=== PATIENT | female | born 1970 | race Caucasian/White ===

== ENCOUNTER 2017-01-12 14:11 | Emergency (ER) ==
[2017-01-12 14:34] VITALS: BP 129/85; TEMP 98; BMI 35.8
[2017-01-12] MEDS ORDERED: SODIUM CHLORIDE 1,000 ML IV STA (15:07)
[2017-01-12] MEDS ORDERED: PROTONIX IV IVP STA (15:09)
[2017-01-12 15:30] LABS: BASOPHILS # (AUTO) 0.1 K/uL (0-0.2); BASOPHILS % (AUTO) 0.4 % (0.0-3.0); EOSINOPHILS # (AUTO) 0.2 K/ul (0.0-0.7); EOSINOPHILS % (AUTO) 1.7 % (0.0-7.0); HEMATOCRIT 44.2 % (37.0-47.0); HEMOGLOBIN 15.1 g/dl (12.0-16.0); IMMATURE GRANULOCYTE % (AUTO) 0.3 % (0.0-5.0); LYMPHOCYTES # (AUTO) 3.7 K/uL (0.60-3.4); LYMPHOCYTES % (AUTO) 32.1 (10.0-50.0); MEAN CORPUSCULAR HEMOGLOBIN 30.4 pg (27.0-31.0); MEAN CORPUSCULAR HGB CONC 34.2 (31.8-35.4); MEAN CORPUSCULAR VOLUME 89.1 fl (81.0-99.0); MONOCYTES # (AUTO) 0.6 K/uL (0.4-2.0); NEUTROPHILS # (AUTO) 6.9 K/ul (2.0-6.9); NEUTROPHILS % (AUTO) 60.5; PLATELET COUNT 330 10^3/uL (140-440); RED BLOOD COUNT 4.96 10^6/ul (4.20-5.40); WHITE BLOOD COUNT 11.43 K/ul (4.6-10.2)
[2017-01-12] MEDS ORDERED: DEMEROL 50 MG/ML SYRINGE IVP STA (15:49)
[2017-01-12] MEDS ORDERED: ZOFRAN 4 MG/2 ML IVP STA (15:49)
--- NOTE | 2017-01-12 15:51 | ED.PDOC ---
General ED Provider: Dr. BENEDICTO CHARLES Chief Complaint: Abdominal Pain Stated Complaint: Patient complains of a 2 day history of mid epigastric to right upper quadrant pain. Pain is worse today and worse with food Rates it at 7 /10 Time Seen by Physician: 15:49 Mode of Arrival: Walk-In Information Source: Patient Primary Care Provider: ANN MARIE BAUTISTA Nursing and Triage Documentation Reviewed and Agree: Yes GI Complaint Exam - Abdominal Pain Complaint/Exam Onset: Sudden Aggravating: Reports: Food, Eating Alleviating: Reports: Position Associated Signs and Symptoms: Reports: Nausea AAA Risk Factors: Reports: None Cardiac Risk Factors: Reports: None Ectopic Risk Factors: Reports: None Ovarian Torsion Risk Factors: Reports: Tubal ligation, Hysterectomy Surgical Obstruction Risk Factors: Reports: None Related Surgical History: Denies: Cholecystectomy, Appendectomy Patient Rh Status: Unknown Abdominal Findings: Absent: Rebound tenderness Review of Systems - Review Of Systems Constitutional: Reports: No symptoms Eyes: Reports: No symptoms Ears, Nose, Mouth, Throat: Reports: No symptoms Respiratory: Reports: No symptoms Cardiac: Reports: No symptoms GI: Reports: Abdominal pain, Nausea, Poor appetite : Reports: No symptoms Musculoskeletal: Reports: No symptoms Skin: Reports: No symptoms Neurological: Reports: No symptoms Endocrine: Reports: No symptoms Hematologic/Lymphatic: Reports: No symptoms All Other Systems: Reviewed and Negative Past Medical History - Past Medical History Previously Healthy: Yes Endocrine: Reports: DM 2 Cardiovascular: Reports: Hypertension Respiratory: Reports: None Hematological: Reports: None Gastrointestinal: Reports: None Genitourinary: Reports: None Neuro/Psych: Reports: None Musculoskeletal: Reports: None Cancer: Reports: None Last Menstrual Period: none - Surgical History General Surgical History: Reports: Hysterectomy, Unknown - Family History Family History: Reports: Unknown - Social History Smoking Status: Never smoker Hx Substance Use: No Alcohol Screening: None Physical Exam - Physical Exam Appearance: Ill-appearing, Obese Ill-appearing: Moderate Pain Distress: Severe Eyes: GABRIELA, EOMI, Conjunctiva clear ENT: Nose normal, Oropharynx normal Neck: Supple Respiratory: Airway patent, Breath sounds clear, Breath sounds equal, Respirations nonlabored Cardiovascular: RRR, Pulses normal, No rub, No murmur GI/: Soft, No masses, Bowel sounds normal, No Organomegaly, Tender Musculoskeletal: Normal strength, ROM intact, No edema, No calf tenderness Skin: Warm, Dry, Normal color Neurological: Sensation intact, Motor intact, Reflexes intact, Cranial nerves intact, Alert, Oriented Psychiatric: Affect appropriate, Anxious Critical Care Note - Critical Care Note Total Time (mins): 0 Course - Course Hematology/Chemistry: 01/12/17 15:15 01/12/17 15:15 Orders, Labs, Meds: Lab Review 01/12/17 01/12/17 15:15 15:35 WBC 11.43 H RBC 4.96 Hgb 15.1 Hct 44.2 MCV 89.1 MCH 30.4 MCHC 34.2 RDW Coeff of Katalina 13.8 Plt Count 330 Immature Gran % (Auto) 0.3 Neut % (Auto) 60.5 Lymph % (Auto) 32.1 [place] % (Auto) 5.0 Eos % (Auto) 1.7 Baso % (Auto) 0.4 Immature Gran # (Auto) 0.0 Neut # 6.9 Lymph # 3.7 H [place] # 0.6 Eos # 0.2 Baso # 0.1 Sodium 144 Potassium 3.6 Chloride 111 H Carbon Dioxide 22 Anion Gap 14.6 BUN 5 L Creatinine 0.86 Estimated GFR (MDRD) 71.00 BUN/Creatinine Ratio 5.81 Glucose 85 Calcium 9.5 Total Bilirubin 0.57 AST 24 ALT 35 Alkaline Phosphatase 120 H Total Creatine Kinase 178 CK-MB (CK-2) 0.9 CK-MB (CK-2) % 0.52036 Troponin I < 0.0100 Total Protein 7.7 Albumin 4.1 Globulin 3.6 Albumin/Globulin Ratio 1.14 Amylase 31 Lipase 40 Urine Color Yellow Urine Clarity Cloudy Urine pH 6.0 Ur Specific [place] 1.015 Urine Protein Trace Urine Glucose (UA) Negative Urine Ketones Trace Urine Blood Trace-intact Urine Nitrite Negative Urine Bilirubin 1+ Urine Urobilinogen 0.2 Ur Leukocyte Esterase Negative Urine Microscopic RBC 2-5 Urine Microscopic WBC 0-2 Ur Squamous Epith Cells 20-30 Urine Bacteria 2+ Urine Mucus 2+ Orders Category Date Time Status EKG-(ED ONLY) Stat CARDIO 01/12/17 15:07 Completed 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 APPLIED .ONCE EMERGENCY 01/12/17 15:07 Active ED IV/MEDIPORT/POWERPORT .ONCE EMERGENCY 01/12/17 15:07 Active AMYLASE Stat LAB 01/12/17 15:15 Completed CBC W/ AUTO DIFF Stat LAB 01/12/17 15:15 Completed COMPREHENSIVE METABOLIC PANEL Stat LAB 01/12/17 15:15 Completed CREATINE KINASE Stat LAB 01/12/17 15:15 Completed LIPASE Stat LAB 01/12/17 15:15 Completed TROPONIN I Stat LAB 01/12/17 15:15 Completed URINALYSIS C & S IF INDICATED Stat LAB 01/12/17 15:35 Completed URINE CULTURE Stat LAB 01/12/17 15:35 Received 0.9 % Sodium Chloride [Saline Flush] MEDS 01/12/17 15:07 Ordered 1 syr IVF PRN PRN Meperidine HCl/Pf [Demerol 50 mg/ml Syringe] MEDS 01/12/17 15:49 Discontinued 50 mg IVP ONCE STA Ondansetron HCl/Pf [Zofran 4 mg/2 ml] MEDS 01/12/17 15:49 Discontinued 4 mg IVP ONCE STA Pantoprazole Sodium [Protonix IV] MEDS 01/12/17 15:09 Discontinued 40 mg IVP ONCE STA Sodium Chloride 0.9% [Sodium Chloride] 1,000 ml MEDS 01/12/17 15:07 Discontinued IV 1,000 mls/hr CHEST, 1V AP ONLY Stat RADS 01/12/17 15:[address] ABD/PEL WO RENAL STONE PROT Stat RADS 01/12/17 15:49 Completed Medications Generic Name Dose Route Start Last Admin Trade Name Freq PRN Reason Stop Dose Admin Sodium Chloride 1 syr 01/12/17 15:07 Saline Flush IVF PRN PRN To flush IV Discontinued Medications Generic Name Dose Route Start Last Admin Trade Name Freq PRN Reason Stop Dose Admin Sodium Chloride 1,000 mls @ 1,000 mls/hr 01/12/17 15:07 01/12/17 15:51 Sodium Chloride IV 01/12/17 16:06 1,000 mls/hr .Q1H STA Administration Meperidine HCl 50 mg 01/12/17 15:49 01/12/17 16:02 Demerol 50 Mg/Ml Syringe IVP 01/12/17 15:50 50 mg ONCE STA Administration Ondansetron HCl 4 mg 01/12/17 15:49 01/12/17 15:52 Zofran 4 Mg/2 Ml IVP 01/12/17 15:50 4 mg ONCE STA Administration Pantoprazole Sodium 40 mg 01/12/17 15:09 01/12/17 15:51 Protonix Iv IVP 01/12/17 15:10 40 mg ONCE STA Administration Vital Signs: Temp Pulse Resp BP Pulse Ox 01/12/17 14:11 98.0 F 75 20 129/85 97 Departure - Departure Time of Disposition: 16:40 Disposition: HOME SELF-CARE Discharge Problem: Abdominal pain UTI (urinary tract infection) Qualifiers: Urinary tract infection type: acute cystitis Hematuria presence: without hematuria Qualifier Code: (N30.00) Acute cystitis without hematuria Instructions: Acute Abdominal Pain (ED), Urinary Tract Infection in Women (ED) Condition: Stable Pt referred to PMD for follow-up: Yes Additional Instructions: Push fluids take medications as prescribed Follow up with PCP in 3 days Prescriptions: Dicyclomine HCl [Bentyl] 10 mg PO TID PRN #15 capsule PRN Reason: Abdominal pain Nitrofurantoin Macrocrystal [Nitrofurantoin] 100 mg PO BID #10 capsule Pantoprazole Sodium [Protonix] 40 mg PO DAILY #30 tablet. Tramadol HCl [Ultram] 50 mg PO Q6H PRN #20 tablet PRN Reason: Severe Pain Allergies/Adverse Reactions: Allergies aspirin Adverse Reaction (Verified 01/12/17 14:34) Nausea ibuprofen Adverse Reaction (Verified 01/12/17 14:34) Nausea phenazopyridine HCl [From Pyridium] Adverse Reaction (Verified 01/12/17 14:34) Hives Home Medications: Ambulatory Orders Cholecalciferol (Vitamin D3) [Vitamin D] 50,000 unit PO WEEKLY 10/26/14 Clonazepam [Klonopin] 0.5 mg PO QID 10/26/14 Cyclobenzaprine HCl [Flexeril] 10 mg PO BID 10/26/14 Lisinopril 2.5 mg PO DAILY 12/03/14 Ranitidine HCl 300 mg PO BID 12/03/14 Nortriptyline HCl 10 mg PO DAILY 07/22/15 Prazosin HCl 1 mg PO BEDTIME #30 05/10/16 Risperdal 1 mg PO BEDTIME #30 10/25/16 Cyanocobalamin (Vitamin B-12) [Vitamin B-12] 1,000 mcg IM MONTHLY 01/12/17 Dicyclomine HCl [Bentyl] 10 mg PO TID PRN #15 capsule 01/12/17 Escitalopram Oxalate [Lexapro] 20 mg PO DAILY 01/12/17 Nitrofurantoin Macrocrystal [Nitrofurantoin] 100 mg PO BID #10 capsule 01/12/17 Pantoprazole Sodium [Protonix] 40 mg PO DAILY #30 tablet. 01/12/17 Tramadol HCl [Ultram] 50 mg PO Q6H PRN #20 tablet 01/12/17 Disposition Discussed With: Patient, Family
[2017-01-12 15:58] LABS: ALANINE AMINOTRANSFERASE 35 U/L (12-78); ALBUMIN 4.1 g/dL (3.4-5.0); ALBUMIN/GLOBULIN RATIO 1.14; ALKALINE PHOSPHATASE 120 U/L (42-98); AMYLASE 31 U/L (25-115); ANION GAP 14.6; ASPARTATE AMINO TRANSFERASE 24 U/L (15-37); BILIRUBIN,TOTAL 0.57 mg/dL (0.00-1.20); BLOOD UREA NITROGEN 5 mg/dL (7-18); BUN/CREATININE RATIO 5.81; CALCIUM 9.5 mg/dL (8.2-10.2); CARBON DIOXIDE 22 mmol/L (21-32); CHLORIDE 111 mmol/L (98-107); CREATINE KINASE 178 U/L; CREATININE 0.86 mg/dL (0.60-1.30); GLUCOSE 85 mg/dL (70-110); LIPASE 40 U/L (8-78); POTASSIUM 3.6 mmol/L (3.5-5.10); SODIUM 144 mmol/L (136-145); TOTAL PROTEIN 7.7 g/dL (6.4-8.2)
[2017-01-12 16:00] LABS: CREATINE KINASE MB 0.9 ng/ml (0.0-3.6)
--- NOTE | 2017-01-12 16:25 | CT ---
EXAM: CT of the abdomen pelvis without contrast History: Right upper quadrant abdominal pain and tenderness. Comparison: Abdominal ultrasound 01/10/2016, CT abdomen pelvis 03/12/2015 Technique: Multiplanar CT images through the abdomen pelvis were obtained without the administratio n of IV contrast Findings: Lung bases are free of consolidation. No acute osseous abnormalities. No discrete gallstones identified by CT. No focal liver or splenic lesions. No peripancreatic infl ammation. Adrenal glands are unremarkable. No renal stones and no hydronephrosis. No ureteral gustavo culi. Bladder is not well distended. The appendix is normal. No bowel obstruction. No free air. No ascites. Tiny focus of air is seen within the bladder. No perirectal inflammation. Uterus is not seen. Impression: A tiny focus of air seen within the bladder is nonspecific and could be related to rece nt Delgado catheter placement or gas-forming organism. Correlate with urinalysis. The examination is otherwise unremarkable.
[2017-01-12 17:13] LABS: BILIRUBIN,URINE 1+ (NEGATIVE); KETONES,URINE Trace (NEGATIVE); LEUKOCYTE ESTERASE ,URINE Negative (NEGATIVE); NITRITE,URINE Negative (NEGATIVE); PROTEIN,URINE Trace (NEGATIVE); URINE, BLOOD Trace-intact (NEGATIVE)
[2017-01-12 17:14] LABS: ADD URINE MICROSCOPIC YES
[2017-01-12 17:15] LABS: BACTERIA,URINE 2+ (NOT PRESENT)
--- NOTE | 2017-01-12 18:14 | DI ---
EXAM: Single view of the chest. History: Epigastric pain and chest pain. Comparison: Chest radiograph 05/31/2012 Findings: Heart size is normal. No focal consolidation. No appreciable pleural fluid and no pneum othorax. No acute osseous abnormalities. Impression: No acute cardiopulmonary process.
== END 2017-01-12 17:32 | disposition home or self-care (01) ==
LOC: ED 14:11
DX: N30.00 Acute cystitis without hematuria (principal); R10.13 Epigastric pain; R10.11 Right upper quadrant pain; E11.9 Type 2 diabetes mellitus without complications; I10 Essential (primary) hypertension; Z79.899 Other long term (current) drug therapy
CPT/HCPCS: 36415; 74176; 80053; 81001; 82150; 82550; 82553; 83690; 84484; 85025; 87086; 93005; 93010; 96361; 96374; 96375; 99283

== ENCOUNTER 2017-03-01 09:25 | Outpatient (CLI) ==
--- NOTE | 2017-03-01 09:54 | US ---
EXAM: Limited abdominal ultrasound. History: Abdominal pain. Comparison: Abdominal ultrasound 01/10/2016 Technique: Multiple sonographic images through the abdomen were obtained. Color duplex Doppler was used to interrogate vascular flow. Findings: The liver is not enlarged according to the sonographic measurement given. Visualized rivas creas demonstrates no gross abnormality. No abdominal ascites. The liver is diffusely echogenic bu t less echogenic compared to the prior study. There is antegrade flow within the main portal vein. Limited visualization of the right kidney demonstrates no evidence for hydronephrosis. No shadowing gallstones. Gallbladder wall is not thickened. Common bile duct measures 0.3 cm in caliber. Impression: Hepatic steatosis but improved compared to the prior study.
== END 2017-03-01 09:26 | disposition home or self-care (01) ==
LOC: RAD 09:25
DX: E11.9 Type 2 diabetes mellitus without complications (principal); R10.13 Epigastric pain; K75.81 Nonalcoholic steatohepatitis (NASH)
CPT/HCPCS: 36415; 83036

== ENCOUNTER 2017-03-04 09:32 | Outpatient (CLI) ==
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
== END 2017-03-04 09:33 | disposition home or self-care (01) ==
LOC: RAD 09:32
DX: M75.81 Other shoulder lesions, right shoulder (principal)

== ENCOUNTER 2017-08-07 20:21 | Emergency (ER) ==
[2017-08-07 20:35] VITALS: BP 111/68; TEMP 98; BMI 30.7
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
== END 2017-08-07 20:45 | disposition left against medical advice (07) ==
LOC: ED 20:21
DX: M54.9 Dorsalgia, unspecified (principal); G89.29 Other chronic pain
CPT/HCPCS: 99284

== ENCOUNTER 2017-12-10 09:44 | Outpatient (CLI) | END 2017-12-10 09:45 | disposition home or self-care (01) | LOC: CAR 09:44 | PROVIDERS: ATTEND Podiatrist | DX: Z01.810 Encounter for preprocedural cardiovascular examination (principal); Z01.812 Encounter for preprocedural laboratory examination | CPT/HCPCS: 36415; 80048; 85025; 93005; 93010 ==

== ENCOUNTER 2018-01-06 10:32 | Outpatient (CLI) | END 2018-01-06 10:33 | disposition home or self-care (01) | LOC: LAB 10:32 | PROVIDERS: ATTEND Podiatrist | DX: Z01.812 Encounter for preprocedural laboratory examination (principal); M79.671 Pain in right foot | CPT/HCPCS: 36415; 80048; 85025 ==

== ENCOUNTER 2018-01-15 01:20 | Emergency (ER) ==
[2018-01-15 01:30] VITALS: BP 126/84; TEMP 97.9; BMI 33.7
[2018-01-15] MEDS ORDERED: AUGMENTIN 500-125 MG TAB PO STA (01:39)
[2018-01-15] MEDS ORDERED: TORADOL IM STA (01:39)
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
== END 2018-01-15 02:00 | disposition home or self-care (01) ==
LOC: ED 01:20
DX: H60.392 Other infective otitis externa, left ear (principal); F17.210 Nicotine dependence, cigarettes, uncomplicated
CPT/HCPCS: 96372; 99282

== ENCOUNTER 2018-05-27 15:08 | Outpatient (POV) ==
[2018-01-15 07:42] VITALS: BMI 33.7
== END 2018-05-27 17:00 ==
LOC: OUTPT 15:08
PROVIDERS: ATTEND Otolaryngology
DX: H91.90 Unspecified hearing loss, unspecified ear (principal)

== ENCOUNTER 2018-08-18 11:44 | Outpatient (CLI) ==
[2018-01-15 07:42] VITALS: BMI 33.7
--- NOTE | 2018-08-18 16:02 | DI ---
EXAM: Lumbar spine five views, including oblique views HISTORY: Low back pain COMPARISON: None TECHNIQUE: Five views lumbar spine were performed including oblique views FINDINGS: Sacroiliac joints intact. Sacral arcuate intact. Vertebral bodies normal height. No fra cture. No subluxation. Mild multilevel intervertebral disc space narrowing. Small multilevel matheus nal osteophyte formation. Suggestion of facet arthrosis in the lower spine. IMPRESSION: Mild chronic discogenic degenerative disease and facet arthrosis.
--- NOTE | 2018-08-18 16:02 | DI ---
EXAM: Thoracic spine three views HISTORY: Thoracic spine pain. FINDINGS: There is mild curvature of the spine convex to the left at the lower thoracic level consis tent with scoliosis. Mild reversal of this curvature is seen more superiorly within the thoracic spi ne. Normal alignment without spondylolisthesis. No fracture is seen. IMPRESSION: 1. Mild scoliosis.
== END 2018-08-18 11:45 | disposition home or self-care (01) ==
LOC: RAD 11:44
PROVIDERS: ATTEND Family Medicine
DX: M54.5 Low back pain (principal); M54.6 Pain in thoracic spine; G89.29 Other chronic pain

== ENCOUNTER 2018-08-18 12:04 | Outpatient (CLI) ==
[2018-01-15 07:42] VITALS: BMI 33.7
== END 2018-08-18 12:05 | disposition home or self-care (01) ==
LOC: RHC-LAB 12:04 → FCC-LAB 12:05
PROVIDERS: ATTEND Family Medicine
DX: M54.6 Pain in thoracic spine (principal); M54.5 Low back pain; G89.29 Other chronic pain; R60.0 Localized edema; R10.13 Epigastric pain; R13.10 Dysphagia, unspecified
CPT/HCPCS: 36415; 80053; 85025

== ENCOUNTER 2018-10-22 17:03 | Emergency (ER) ==
[2018-10-22 17:06] VITALS: BP 128/78; TEMP 98.9; BMI 34.2
--- NOTE | 2018-10-22 17:15 | ED.PDOC ---
General ED Provider: Dr. DANIEL PEREYRA Chief Complaint: Abdominal Pain Stated Complaint: several days of UGI-gallblader related complaints-symptoms.On- off loose bm.N & V,indigestion,bloatines and loss od apetite, Time Seen by Physician: 17:15 Mode of Arrival: Walk-In Information Source: Patient Exam Limitations: No limitations Primary Care Provider: VALDO TOVAR Nursing and Triage Documentation Reviewed and Agree: Yes Does patient meet sepsis criteria?: No System Inflammatory Response Syndrome: Not Applicable Sepsis Protocol: For patient's 13 years and over: Temp is 96.8 and below OR 101 and greater Pulse >90 BPM Resp >20/minute Acutely Altered Mental Status Are patient's symptoms suggestive of a new infection, such as: -Pneumonia -Skin, Soft Tissue -Endocarditis -UTI -Bone, Joint Infection -Implantable Device -Acute Abdominal Infection -Wound Infection -Meningitis -Blood Stream Catheter Infection -Unknown GI Complaint Exam - Abdominal Pain Complaint/Exam Onset: Gradual Duration: several days Symptoms Are: Still present Timing: Intermittent Initial Severity: Moderate Current Severity: Mild Location of Pain: Epigastric Radiates To: Reports: Back, Flank Character: Reports: Aching, Colicky Aggravating: Reports: Movement, Food, Deep breaths Alleviating: Reports: Rest, Position, Spontaneous resolution Associated Signs and Symptoms: Reports: Fever, Decreased appetite, Nausea, Vomiting, Decreased activity Review of Systems - Review Of Systems Constitutional: Reports: Malaise, Loss of appetite Eyes: Reports: No symptoms Ears, Nose, Mouth, Throat: Reports: No symptoms Respiratory: Reports: No symptoms Cardiac: Reports: No symptoms GI: Reports: Abdomen distended, Abdominal pain, Nausea, Poor appetite : Reports: No symptoms Musculoskeletal: Reports: No symptoms Neurological: Reports: No symptoms Endocrine: Reports: No symptoms Hematologic/Lymphatic: Reports: No symptoms All Other Systems: Reviewed and Negative Past Medical History - Past Medical History Previously Healthy: Yes Endocrine: Reports: DM 2 Cardiovascular: Reports: Hypertension Respiratory: Reports: None Hematological: Reports: None Gastrointestinal: Reports: None Genitourinary: Reports: None Neuro/Psych: Reports: None Musculoskeletal: Reports: None Cancer: Reports: None Last Menstrual Period: none - Surgical History General Surgical History: Reports: Hysterectomy, Unknown - Family History Family History: Reports: Unknown - Social History Smoking Status: Light tobacco smoker, Current every day smoker Hx Substance Use: No Alcohol Screening: Occasionally Physical Exam - Physical Exam Appearance: Well-appearing Ill-appearing: Mild Pain Distress: Mild Eyes: GABRIELA ENT: Ears normal Neck: Supple Respiratory: Airway patent Cardiovascular: RRR GI/: Soft, Hepatomegaly Skin: Warm Neurological: Sensation intact Critical Care Note - Critical Care Note Total Time (mins): 0 Course - Course Hematology/Chemistry: 10/22/18 17:25 10/22/18 17:25 Orders, Labs, Meds: Lab Review 10/22/18 10/22/18 17:25 17:25 WBC 8.03 RBC 3.93 L Hgb 12.8 Hct 36.9 L MCV 93.9 MCH 32.6 H MCHC 34.7 RDW Coeff of [place] 13.0 Plt Count 229 Immature Gran % (Auto) 0.2 Neut % (Auto) 50.7 Lymph % (Auto) 39.9 [place] % (Auto) 5.4 Eos % (Auto) 3.2 Baso % (Auto) 0.6 Immature Gran # (Auto) 0.0 Neut # (Auto) 4.1 Lymph # (Auto) 3.2 [place] # (Auto) 0.4 Eos # (Auto) 0.3 Baso # (Auto) 0.1 Sodium 141.5 Potassium 3.34 L Chloride 110.2 H Carbon Dioxide 20.4 L Anion Gap 14.24 BUN 11.5 Creatinine 0.92 Estimated GFR (MDRD) 65.00 BUN/Creatinine Ratio 12.50 Glucose 107.3 H Calcium 9.18 Total Bilirubin 0.37 AST 23.7 ALT 16.5 Alkaline Phosphatase 82.7 Total Protein 6.78 Albumin 4.43 Globulin 2.35 Albumin/Globulin Ratio 1.88 Amylase 54.3 Orders Category Date Time Status IV [ED IV/MEDIPORT/POWERPORT] .ONCE EMERGENCY 10/22/18 17:19 Active AMYLASE Stat LAB 10/22/18 17:25 Completed CBC W/ AUTO DIFF Stat LAB 10/22/18 17:25 Completed COMPREHENSIVE METABOLIC PANEL Stat LAB 10/22/18 17:25 Completed 0.9 % Sodium Chloride [Saline Flush] MEDS 10/22/18 17:19 Ordered 1 syr IVF PRN PRN Morphine Sulfate [Morphine 2 mg/ml Syringe] MEDS 10/22/18 17:25 Discontinued 2 mg IVP ONCE STA Ondansetron HCl/Pf [Zofran 4 mg/2 ml] MEDS 10/22/18 17:43 Discontinued 4 mg IVP ONCE STA Ringers Lactated Solution [Lactated Ringers] 1,000 ml MEDS 10/22/18 17:[address] ABDOMEN/PELVIS WO CONTRAST Stat RADS 10/22/18 17:17 Taken Medications Generic Name Dose Route Start Last Admin Trade Name Freq PRN Reason Stop Dose Admin Lactated Ringer's 1,000 mls @ 500 mls/hr 10/22/18 17:20 10/22/18 17:29 Lactated Ringers IV 10/22/18 19:19 500 mls/hr BOLUS STA Administration Sodium Chloride 1 syr 10/22/18 17:19 10/22/18 17:30 Saline Flush IVF 1 syr PRN PRN Administration To flush IV Discontinued Medications Generic Name Dose Route Start Last Admin Trade Name Freq PRN Reason Stop Dose Admin Morphine Sulfate 2 mg 10/22/18 17:25 10/22/18 17:48 Morphine 2 Mg/Ml Syringe IVP 10/22/18 17:26 2 mg ONCE STA Administration Ondansetron HCl 4 mg 10/22/18 17:43 10/22/18 17:48 Zofran 4 Mg/2 Ml IVP 10/22/18 17:44 4 mg ONCE STA Administration Vital Signs: Temp Pulse Resp BP Pulse Ox 10/22/18 17:04 98.9 F 111 H 18 128/78 97 Departure - Departure Time of Disposition: 18:29 Disposition: HOME SELF-CARE Discharge Problem: Cholelithiasis Instructions: Laparoscopic Cholecystectomy (DC) Condition: Good Pt referred to PMD for follow-up: Yes (follow with surical office/GB) IPMP verified?: No Allergies/Adverse Reactions: Allergies aspirin Adverse Reaction (Verified 10/22/18 17:07) Nausea phenazopyridine HCl [From Pyridium] Adverse Reaction (Verified 10/22/18 17:07) Hives Home Medications: Ambulatory Orders Cholecalciferol (Vitamin D3) [Vitamin D3] 50,000 unit PO WEEKLY 10/26/14 Cyclobenzaprine HCl [Flexeril] 10 mg PO BID 10/26/14 Ranitidine HCl 300 mg PO BID 12/03/14 Cyanocobalamin (Vitamin B-12) [Vitamin B-12] 1,000 mcg IM MONTHLY 01/12/17 Escitalopram Oxalate [Lexapro] 20 mg PO DAILY 01/12/17 Buspirone HCl 7.5 mg PO BID 01/15/18 Meloxicam [Mobic] 7.5 mg PO DAILY 01/15/18 Trazodone HCl 50 mg PO BEDTIME 01/15/18 Spironolactone 25 mg PO DAILY 02/21/18 Disposition Discussed With: Patient, Family
[2018-10-22] MEDS ORDERED: LACTATED RINGERS 1,000 ML IV STA (17:20)
[2018-10-22] MEDS ORDERED: ROBINOL IVP STA (17:24)
[2018-10-22] MEDS ORDERED: MORPHINE 2 MG/ML SYRINGE IVP STA (17:25)
[2018-10-22] MEDS ORDERED: ZOFRAN 4 MG/2 ML IVP STA (17:43)
[2018-10-22] MEDS ORDERED: K-DUR PO STA (17:58)
--- NOTE | 2018-10-22 18:17 | CT ---
Exam: CT abdomen pelvis without intravenous contrast. Comparison: Ultrasound performed 03/01/2017. Reason for exam: Epigastric pain. FINDINGS: There is mild basilar atelectasis without pleural effusion, or focal consolidation. The liver, spleen, adrenal glands, and pancreas appear grossly unremarkable. Calcifications are seen in the gallbladder lumen without obvious wall thickening. No focal small bowel dilatation or transition point is seen. The appendix is unremarkable. No hydronephrosis, hydroureter, or nephrolithiasis is seen in either kidney. Degenerative disease is seen in the lumbosacral spine. Impression: 1. No acute inflammatory findings are seen within the abdomen or pelvis. 2. Cholelithiasis without evidence of cholecystitis.
== END 2018-10-22 18:47 | disposition home or self-care (01) ==
LOC: ED 17:03
DX: K80.20 Calculus of gallbladder without cholecystitis without obstruction (principal); E11.9 Type 2 diabetes mellitus without complications; I10 Essential (primary) hypertension; F17.210 Nicotine dependence, cigarettes, uncomplicated
CPT/HCPCS: 36415; 80053; 82150; 85025; 96361; 96374; 96375; 99283

== ENCOUNTER 2018-11-03 11:39 | Outpatient (CLI) | END 2018-11-03 11:40 | disposition home or self-care (01) | LOC: LAB 11:39 | PROVIDERS: ATTEND Family Medicine | DX: E11.9 Type 2 diabetes mellitus without complications (principal); D51.0 Vitamin B12 deficiency anemia due to intrinsic factor deficiency; K75.81 Nonalcoholic steatohepatitis (NASH); E78.2 Mixed hyperlipidemia; E55.9 Vitamin D deficiency, unspecified; Z13.29 Encounter for screening for other suspected endocrine disorder | CPT/HCPCS: 36415; 80053; 80061; 82306; 83036; 84443; 85025 ==

== ENCOUNTER 2018-11-21 22:20 | Outpatient (CLI) ==
[2018-11-21 22:53] VITALS: BMI 34.0
== END 2018-11-21 22:25 | disposition critical access hospital (66) ==
LOC: AMBL 22:20
PROVIDERS: ATTEND Family Medicine
DX: G89.18 Other acute postprocedural pain (principal); L76.22 Postprocedural hemorrhage of skin and subcutaneous tissue following other procedure

== ENCOUNTER 2018-11-21 22:41 | Emergency (ER) ==
[2018-11-21 22:53] VITALS: BP 151/83; TEMP 98; BMI 34.0
--- NOTE | 2018-11-21 23:14 | ED.PDOC ---
General ED Provider: Dr. AIME HILTON MD Chief Complaint: Abdominal Pain Stated Complaint: tiny oozing of blood from incision today Time Seen by Physician: 23:07 Mode of Arrival: Wheelchair Information Source: Patient Exam Limitations: No limitations Primary Care Provider: SAÚL MARTINEZ Nursing and Triage Documentation Reviewed and Agree: Yes Does patient meet sepsis criteria?: No If yes, has appropriate treatment been initiated?: Yes System Inflammatory Response Syndrome: Not Applicable Sepsis Protocol: For patient's 13 years and over: Temp is 96.8 and below OR 101 and greater Pulse >90 BPM Resp >20/minute Acutely Altered Mental Status Are patient's symptoms suggestive of a new infection, such as: -Pneumonia -Skin, Soft Tissue -Endocarditis -UTI -Bone, Joint Infection -Implantable Device -Acute Abdominal Infection -Wound Infection -Meningitis -Blood Stream Catheter Infection -Unknown Review of Systems - Review Of Systems Constitutional: Reports: No symptoms Eyes: Reports: No symptoms Ears, Nose, Mouth, Throat: Reports: No symptoms Respiratory: Reports: No symptoms Cardiac: Reports: No symptoms GI: Reports: No symptoms : Reports: No symptoms Musculoskeletal: Reports: No symptoms Skin: Reports: No symptoms Neurological: Reports: No symptoms Endocrine: Reports: No symptoms Hematologic/Lymphatic: Reports: No symptoms All Other Systems: Reviewed and Negative Past Medical History - Past Medical History Previously Healthy: Yes Endocrine: Reports: DM 2 Cardiovascular: Reports: Hypertension Respiratory: Reports: None Hematological: Reports: None Gastrointestinal: Reports: None Genitourinary: Reports: None Neuro/Psych: Reports: None Musculoskeletal: Reports: None Cancer: Reports: None Last Menstrual Period: HAS HAD A HYSTERECTOMY - Surgical History General Surgical History: Reports: Hysterectomy, Unknown - Family History Family History: Reports: Unknown - Social History Smoking Status: Current every day smoker, Heavy tobacco smoker Hx Substance Use: No Alcohol Screening: Occasionally - Immunizations Tetanus Shot up to Date: Yes Physical Exam - Physical Exam Appearance: Obese Ill-appearing: None Pain Distress: None Eyes: GABRIELA, EOMI, Conjunctiva clear ENT: Ears normal, Nose normal, Oropharynx normal Respiratory: Airway patent, Breath sounds clear, Breath sounds equal, Respirations nonlabored Cardiovascular: RRR, Pulses normal, No rub, No murmur GI/: Soft, Nontender, No masses, Bowel sounds normal, No Organomegaly Musculoskeletal: Normal strength, ROM intact, No edema, No calf tenderness Skin: Warm, Dry, Normal color Neurological: Sensation intact, Motor intact, Reflexes intact, Cranial nerves intact, Alert, Oriented Psychiatric: Affect appropriate, Mood appropriate Critical Care Note - Critical Care Note Total Time (mins): 0 Course - Course Vital Signs: Temp Pulse Resp BP Pulse Ox 11/21/18 22:42 98 F 75 18 151/83 H 97 Departure - Departure Time of Disposition: 00:10 Disposition: HOME SELF-CARE Discharge Problem: Encounter for post surgical wound check Instructions: Acute Wound Care (ED) Condition: Good Pt referred to PMD for follow-up: Yes IPMP verified?: No Allergies/Adverse Reactions: Allergies aspirin Adverse Reaction (Verified 11/21/18 22:54) Nausea phenazopyridine HCl [From Pyridium] Adverse Reaction (Verified 11/21/18 22:54) Hives Home Medications: Ambulatory Orders Cholecalciferol (Vitamin D3) [Vitamin D3] 50,000 unit PO WEEKLY 10/26/14 Cyclobenzaprine HCl [Flexeril] 10 mg PO BID 10/26/14 Ranitidine HCl 300 mg PO BID 12/03/14 Cyanocobalamin (Vitamin B-12) [Vitamin B-12] 1,000 mcg IM MONTHLY 01/12/17 Escitalopram Oxalate [Lexapro] 20 mg PO DAILY 01/12/17 Buspirone HCl 7.5 mg PO BID 01/15/18 Meloxicam [Mobic] 7.5 mg PO DAILY 01/15/18 Trazodone HCl 50 mg PO BEDTIME 01/15/18 Spironolactone 25 mg PO DAILY 02/21/18 Gabapentin 300 mg PO TID 11/21/18 Hydrocodone Bit/Acetaminophen [[place] 5-325] 1 each PO Q6HR PRN 11/21/18 Nystatin [Nystatin Cream] 1 applic TP TID PRN 11/21/18 Risperidone [Risperdal] 1 mg PO BEDTIME 11/21/18
== END 2018-11-22 00:10 | disposition home or self-care (01) ==
LOC: ED 22:41
DX: R10.9 Unspecified abdominal pain (principal); Z98.890 Other specified postprocedural states; E11.9 Type 2 diabetes mellitus without complications; I10 Essential (primary) hypertension; F17.210 Nicotine dependence, cigarettes, uncomplicated; Z79.899 Other long term (current) drug therapy
CPT/HCPCS: 99282